=== PATIENT | male | born 1975 | race Caucasian/White ===

== ENCOUNTER → 2016-07-22 | Outpatient (CLI) | payer OTHER | LOC: LAB 21:48 | DX: Z02.83 Encounter for blood-alcohol and blood-drug test (principal) | CPT/HCPCS: 36415 ==

== ENCOUNTER 2020-07-25 22:21 | Emergency (ER) | payer MEDICARE ==
[~2020-07-25 22:21] MED LIST: DOXYCYCLINE HY100 M2 PO; LORTAB 5-325 M1 EACH PO; METOPROLOL SUCC25 MG PO
[2020-07-26 00:03] LABS: HEMOGLOBIN 16.8 gm/dl (14.0-17.5); RED BLOOD COUNT 5.14 M/UL (4.20-5.50); WHITE BLOOD COUNT 10.2 K/UL (4.5-11.0)
[2020-07-26 00:26] LABS: BUN/CREATININE RATIO 8 (0-10)
== END 2020-07-26 03:57 | disposition home or self-care (01) ==
LOC: ER1 22:21
PROVIDERS: Emergency Medicine
DX: R07.9 Chest pain, unspecified (principal); I10 Essential (primary) hypertension; R41.0 Disorientation, unspecified; F17.200 Nicotine dependence, unspecified, uncomplicated
CPT/HCPCS: 70450; 71045; 80053; 80307; 81001; 82550; 82553; 83690; 83735; 83874; 83880; 84484; 85025; 85379; 85610; 85730; 93005; 99285; G0480

== ENCOUNTER 2020-12-23 10:18 | Emergency (ER) | payer MEDICARE ==
[2020-12-23] MEDS ORDERED: NAPROSYN500 MG PO (11:33)
== END 2020-12-23 11:39 | disposition home or self-care (01) ==
LOC: ER1 10:18
DX: S60.221A Contusion of right hand, initial encounter (principal); W20.8XXA Other cause of strike by thrown, projected or falling object, initial encounter
CPT/HCPCS: 73130; 96372; 99283; J2270